=== PATIENT | female | born 1995 | race Caucasian/White ===

== ENCOUNTER 2022-03-24 20:16 | Emergency (ER) | payer OTHER ==
[~2022-03-24] VITALS: Ht 167.6 cm; Wt 65.8 kg
--- NOTE | 2022-03-24 20:30 | NUR ---
Dr Saleem in room MSE in progress
--- NOTE | 2022-03-24 21:00 | NUR ---
Patient is a/ox4, NAD noted. Patient is able to walk with steady gait
[2022-03-24 22:05] LABS: *URINE HCG, QUAL NEGATIVE (NEGATIVE)
--- NOTE | 2022-03-24 22:47 | NUR ---
Patient discharged to home in stable condition. Written and verbal after care instructions given. Patient verbalizes understanding of instructions. Stressed follow up or return to ER for worsening s/s. Patient is a/ox4, NAD noted. Patient is able to walk with steady gait.
[2022-03-24 22:51] VITALS: BP 127/76
== END 2022-03-24 22:51 | disposition home or self-care (01) ==
LOC: ER 20:16
DX: S09.90XA Unspecified injury of head, initial encounter (principal); W22.09XA Striking against other stationary object, initial encounter; Y93.89 Activity, other specified; Y92.89 Other specified places as the place of occurrence of the external cause; R10.2 Pelvic and perineal pain; R03.0 Elevated blood-pressure reading, without diagnosis of hypertension; Q79.60 Ehlers-Danlos syndrome, unspecified
CPT/HCPCS: 70450; 84703; A4663

== ENCOUNTER 2022-07-04 15:10 | Emergency (ER) | payer OTHER ==
[~2022-07-04] VITALS: Ht 167.6 cm; Wt 66.2 kg
--- NOTE | 2022-07-04 15:27 | NUR ---
Pt placed in ER bed 2A.
--- NOTE | 2022-07-04 15:42 | NUR ---
Mother present at bedside.
--- NOTE | 2022-07-04 15:45 | NUR ---
Er provider present in room at this time.
[2022-07-04] MEDS ORDERED: KETOROLAC TROMETHAMINE 15 MG INJ ONE (16:14)
[2022-07-04] MEDS ORDERED: METHOCARBAMOL 500 MG TABLET ONE (16:14)
[2022-07-04] MEDS ORDERED: METHOCARBAMOL 500 MG TABLET PO ONE (16:15)
[2022-07-04] MEDS ORDERED: KETOROLAC TROMETHAMINE 15 MG INJ IM ONE (16:15)
[2022-07-04 16:29] LABS: HEMATOCRIT 41.4 % (31.2-41.9); MEAN CORPUSCULAR HEMOGLOBIN 28.2 uug (24.7-32.8); MEAN CORPUSCULAR VOLUME 81.9 fL (75.5-95.3); PLATELET COUNT (AUTO) 213 K/uL (179-408)
[2022-07-04 16:38] LABS: BILIRUBIN,TOTAL 1.7 mg/dL (0.2-1.0); CREATININE 0.9 mg/dL (0.6-1.3); TOTAL PROTEIN, SERUM 7.4 g/dL (6.4-8.2)
[2022-07-04 17:38] LABS: *BILIRUBIN,URIN NEGATIVE (NEGATIVE); *BLOOD, URINE 2+ (NEGATIVE); *CLARITY,URINE CLEAR (CLEAR); *COLOR,URINE YELLOW (YELLOW); *KETONES,URINE NEGATIVE (NEGATIVE); *UROBILINOGEN,URINE 0.2 E.U./dl (NORMAL); LEUKOCYTE ESTERASE ,URINE NEGATIVE (NEGATIVE); NITRITE, URINE NEGATIVE (NEGATIVE); UGLUCOSE NEGATIVE (NEGATIVE)
[2022-07-04 17:39] LABS: *URINE HCG, QUAL NEGATIVE (NEGATIVE); BACTERIA,URINE NONE SEEN /HPF (NONE SEEN); SQUAMOUS EPITHELIAL CELL,UR FEW /HPF (NONE SEEN); WBC,URINE 0-3 /HPF (0-3)
[2022-07-04] MEDS ORDERED: SIMETHICONE 80 MG TAB.CHEW PO ONE (18:00)
[2022-07-04] MEDS ORDERED: METH-807 PO (18:36)
[2022-07-04] MEDS ORDERED: SIMETHICONE 80 MG TAB.CHEW ONE (18:46)
[2022-07-04 18:55] VITALS: BP 124/69
--- NOTE | 2022-07-04 18:55 | NUR ---
Patient discharged to home in stable condition. Written and verbal after care instructions given. Patient verbalizes understanding of instructions. Stressed follow up or return to ER for worsening s/s.
== END 2022-07-04 18:50 | disposition home or self-care (01) ==
LOC: ER 15:14
DX: M54.50 Low back pain, unspecified (principal); R10.2 Pelvic and perineal pain
CPT/HCPCS: 99284; 76856; 80053; 81001; 84703; 83690; 85025; 36415; 96372; J1885; A4663